=== PATIENT | female | born 1970 | race Caucasian/White ===

== ENCOUNTER 2021-02-22 13:14 | Emergency (ER) | payer BC ==
[~2021-02-22] VITALS: Ht 182.9 cm; Wt 77.1 kg
== END 2021-02-22 14:20 | disposition home or self-care (01) ==
LOC: ED 13:14
DX: T65.91XA Toxic effect of unspecified substance, accidental (unintentional), initial encounter (principal); H10.211 Acute toxic conjunctivitis, right eye
CPT/HCPCS: 99283

== ENCOUNTER 2023-03-10 07:40 | Day surgery (SDC) | payer BC ==
[~2023-03-10] VITALS: Ht 182.9 cm; Wt 86.4 kg
[2023-03-10 08:14] VITALS: BP 116/70
[2023-03-10 11:10] VITALS: BP 115/46
[2023-03-10 12:00] VITALS: BP 109/61
--- NOTE | 2023-03-11 07:58 | OR ---
[facility] [address] [place], [place] [address] Signed DATE OF OPERATION: 03/10/2023 SURGEON: Melissa Tryo MD PREOPERATIVE DIAGNOSES: Screening. POSTOPERATIVE DIAGNOSES: 1. Minimal external hemorrhoids. 2. Long redundant colon. 3. Minimal to moderate sigmoid diverticulosis. PROCEDURE: Colonoscopy without biopsy. ESTIMATED BLOOD LOSS: None. INDICATIONS: Katherine is a 52-year-old female, who is quite healthy and takes no medications and has no allergies. She came for her initial screening colonoscopy. She has no lower GI complaints. There is no family history of colon cancer or polyps. She told me she had an episiotomy and also had wisdom teeth extractions without any bleeding. She also has a little bit of tremor to her head. In the office, I gave her a pamphlet on colonoscopy. We have reviewed the nature of the test. There is risk including, but not limited to gas bloating, crampy abdominal pain, bleeding, perforation requiring surgery, and missed diagnosis. We also reviewed the need for IV conscious sedation. She had expressed understanding and wished to proceed. PROCEDURE NOTE: Katherine was taken into our endoscopy suite and placed in the left lateral decubitus position. We gave her a total of 7 mg of Versed and 125 mcg of fentanyl. We had done a digital rectal exam. She has minimal circumferential external hemorrhoids. She has good sphincter tone. There are no masses in the rectum. However, her uterus and cervix do not feel appropriate. Rather than a circular, it feels very elongated, very indurated over about 4 cm. She has not seen a blueprint trimmer in years. That would be highly recommended. The adult colonoscope had been introduced and advanced under direct visualization of the camera. We made it into the left colon. She was nice and comfortable, but as soon as we tried to advance the scope, she was awake and moaning in pain and talking to us. Consequently, we called in our anesthesia provider. With the Electronically Signed By: MELISSA TROY MD 03/11/23 0758 PATIENT NAME: KATHERINE ALVARADO OPERATIVE REPORT DATE OF : 70 REPORT #: [id number] PHYSICIAN: MELISSA TROY MD PCP: OTHER PCP REPORT IS CONFIDENTIAL AND NOT TO BE RELEASED WITHOUT AUTHORIZATION [facility] [address] [place], [place] [address] Signed addition of propofol then, we started to advance the scope and she actually needed more propofol. We finally made it to her cecum. Her prep was quite excellent. We could easily see the appendiceal orifice and the ileocecal valve. The scope was then slowly withdrawn. We took pictures throughout for photodocumentation. There were no polyps. She has diverticula in the left and sigmoid colon. They are minimal to moderate in size, minimal to moderate in number, and scattered about. Once in the rectum, the scope had been retroflexed and there was no additional pathology noted above the anal canal. After this, the gas was suctioned out and the colonoscope removed. Overall, Katherine tolerated the procedure well. At the end, she required Narcan and Romazicon. After she was awake, she was taken into the recovery room in stable condition. RECOMMENDATIONS: Katherine can follow up in 10 years for repeat screening colonoscopy. She was highly advised to go see a blueprint trimmer for a full pelvic exam given the findings on digital rectal exam. She will always need monitored anesthesia care in the future. MD SARWAT Burton/MODL /[id number] cc: MD Rhea Burton PA Copies: MELISSA TROY MD ~ Electronically Signed By: MELISSA TROY MD 03/11/23 0758 PATIENT NAME: KATHERINE ALVARADO OPERATIVE REPORT DATE OF : 70 REPORT #: [id number] PHYSICIAN: MELISSA TROY MD PCP: OTHER PCP REPORT IS CONFIDENTIAL AND NOT TO BE RELEASED WITHOUT AUTHORIZATION
== END 2023-03-10 12:05 | disposition home or self-care (01) ==
LOC: DS 07:40 → OPS 07:40 → DS 09:45 → OPS 09:45
PROVIDERS: ATTEND Colon & Rectal Surgery
DX: Z12.11 Encounter for screening for malignant neoplasm of colon (principal); K57.30 Diverticulosis of large intestine without perforation or abscess without bleeding; K64.4 Residual hemorrhoidal skin tags; Q43.8 Other specified congenital malformations of intestine; R25.1 Tremor, unspecified
CPT/HCPCS: G0121; J2250; J2310; J2704; J3010; J7121